=== PATIENT | male | born 1960 | race Two or more races ===

== ENCOUNTER 2020-05-31 12:10 | Emergency (ER) | payer BC, OTHER ==
[~2020-05-31] VITALS: Ht 175.3 cm; Wt 72.6 kg
[2020-05-31] MEDS ORDERED: SODIUM CHLORIDE 0.9% 1,000 ML IVB ONE (12:45)
[2020-05-31 14:19] LABS: Alanine Aminotransferase 48 U/L (16-61); Albumin 3.2 g/dL (3.4-5.0); Anion Gap 7 (5-15); Blood Urea Nitrogen 12 mg/dL (7-18); Carbon Dioxide 26 mmol/L (21-32); Chloride 103 mmol/L (98-107); Glucose 97 mg/dL (74-106); Lipase 337 U/L (73-393); Magnesium 2.7 mg/dL (1.6-2.6); Potassium 3.5 mmol/L (3.5-5.1); Sodium 136 mmol/L (136-145)
[2020-05-31 14:20] LABS: Basophils # (auto) 0.1 10 ^3/uL (0-0.2); Basophils % (auto) 1.4 % (0.0-2.0); Eosinophils # (auto) 0 10 ^3/uL (0-0.8); Hematocrit 44.8 % (41.0-53.0); Hemoglobin 15.3 g/dL (13.5-17.5); Lymphocytes # (auto) 0.6 10 ^3/uL (0.4-5.4); Lymphocytes % (auto) 14.3 % (10.0-50.0); Mean Corpuscular Hemoglobin 29.9 pg (28.0-32.0); Mean Corpuscular Volume 88.1 fL (80.0-100.0); Monocytes # (auto) 0.4 10 ^3/uL (0-1.3); Monocytes % (auto) 9.7 % (0.0-12.0); Neutrophils # (auto) 2.9 10 ^3/uL (1.6-8.6); Neutrophils % (auto) 74.6 % (37.0-80.0); Nucleated Red Blood Cells % 0.2 %; Platelet Count (auto) 101 10^3/uL (140-450); Red Blood Cells 5.09 10^6/uL (4.5-5.90); Red Cell Distribution Width 13.6 % (11.8-14.3); White Blood Cell 3.9 10^3/uL (4.4-10.8)
[2020-05-31 14:24] LABS: Alkaline Phosphatase 80 U/L (45-117); Aspartate Aminotransferase 57 U/L (15-37); BUN/Creatinine Ratio 14.3; Bilirubin, Total 0.8 mg/dL (0.2-1.0); GFR African American 119 mL/min; GFR Non-African American 99 mL/min; Total Protein 6.9 g/dL (6.4-8.2)
[2020-05-31] MEDS ORDERED: LORazepam 2MG/ML-1ML VIAL ONE (15:19)
[2020-05-31] MEDS ORDERED: LORazepam 2MG/ML-1ML VIAL IV ONE (15:30)
[2020-05-31] MEDS ORDERED: IOHEXOL 300 MG/ML 100ML BOTTLE IJ ONE (15:51)
[2020-05-31 17:26] VITALS: BP 101/61
== END 2020-06-01 02:53 | disposition home or self-care (01) ==
LOC: ER 12:10 → EDBD 12:10 → ER 06-01 02:40
DX: R55 Syncope and collapse (principal); R19.7 Diarrhea, unspecified; Z20.828 Contact with and (suspected) exposure to other viral communicable diseases
CPT/HCPCS: 36415; 70450; 74022; 74177; 80053; 82728; 82962; 83605; 83615; 83690; 83735; 83880; 84443; 84484; 85025; 85379; 86141; 87426; 93005; 96361; 96374; 99285; J2060; J7030; Q9967; U0003